=== PATIENT | male | born 1955 ===

== ENCOUNTER 2024-08-11 14:48 | Inpatient (IN) | payer OTHER ==
[~2024-08-11] VITALS: Ht 61 cm; Wt 71.2 kg
[~2024-08-11 14:48] MED LIST: BACLOFEN10 MG PO; NEURONTIN300 MG PO; NEURONTIN600 M1 PO; ZESTRIL20 MG PO
[2024-08-19] MEDS ORDERED: MEDROLPACK PO (07:11)
[2024-08-19] MEDS ORDERED: COLACE100 MG PO (07:11)
[2024-08-19] MEDS ORDERED: AMOX-CLAV 875-1 EACH PO (07:11)
[2024-08-19] MEDS ORDERED: PERCOCET 5-3251 EACH PO (07:11)
[2024-08-19] MEDS ORDERED: GABAPENTIN100 M2 PO (07:13)
[2024-08-19] MEDS ORDERED: ZOFRAN8 MG PO (07:13)
[2024-08-19] MEDS ORDERED: NEURONTIN800 MG PO (07:14)
[2024-08-19] MEDS ORDERED: 0.9 % SODIUM CHLORIDE 1,000 ML IV SCH (07:15)
[2024-08-19] MEDS ORDERED: ENALAPRILAT DIHYDRATE 1.25 MG/ML VIAL IV PRN (07:15)
[2024-08-19] MEDS ORDERED: PROMETHAZINE HCL 50 MG/ML AMPUL IM PRN (07:15)
[2024-08-19] MEDS ORDERED: METHYLPREDNISOLONE SOD SUCC 125 MG VIAL IV SCH (09:00)
[2024-08-19] MEDS ORDERED: TAMSULOSIN HCL 0.4 MG CAP PO SCH (09:00)
[2024-08-19] MEDS ORDERED: CEFAZOLIN SODIUM 1,000 MG in 0.9 % SODIUM CHLORIDE 50 ML IV SCH (09:00)
[2024-08-19] MEDS ORDERED: FAMOtidine 20 MG TABLET PO SCH (09:00)
[2024-08-19] MEDS ORDERED: MORPHINE SULFATE 4 MG/ML CARTRIDGE IV SCH (09:00)
[2024-08-19] MEDS ORDERED: VANCOMYCIN HCL 1,000 MG VIAL IV SCH (09:00)
[2024-08-19] MEDS ORDERED: DOCUSATE SODIUM 100MG CAP PO SCH (09:00)
[2024-08-19] MEDS ORDERED: METHYLPREDNISOLONE SOD SUCC 125 MG VIAL IV ONE (10:00)
[2024-08-19] MEDS ORDERED: IOVERSOL 320 MG/ML - 50 ML VIAL IV ONE (10:00)
[2024-08-19] MEDS ORDERED: METHYLPREDNISOLONE ACETATE 80 MG/ML VIAL IM ONE (10:00)
[2024-08-19] MEDS ORDERED: METHYLPREDNISOLONE SOD SUCC 125 MG VIAL IJ ONE (10:00)
[2024-08-19] MEDS ORDERED: VANCOMYCIN HCL 1,000 MG VIAL IV ONE (10:00)
[2024-08-19] MEDS ORDERED: ISOPROPYL ALCOHOL 30 ML OUNCE TOP ONE (10:00)
[2024-08-19] MEDS ORDERED: VANCOMYCIN HCL 1,000 MG VIAL IR ONE ×2 (10:00→11:30)
[2024-08-19] MEDS ORDERED: CEFAZOLIN SODIUM 1,000 MG VIAL IV ONE (10:00)
[2024-08-19] MEDS ORDERED: HEMOSTATIC MATRIX WITH THROMBIN KIT TOP ONE (11:45)
[2024-08-19] MEDS ORDERED: MORPHINE SULFATE 4 MG/ML VIAL IV ONE ×2 (12:45→13:15)
[2024-08-19] MEDS ORDERED: BACITRACIN 28.35 GM OINT.TUBE TOP ONE (13:00)
[2024-08-19] MEDS ORDERED: MEPERIDINE HCL 25 MG/ML AMPUL IV ONE (14:00)
[2024-08-19] MEDS ORDERED: ENALAPRILAT DIHYDRATE 1.25 MG/ML VIAL IV ONE (14:10)
[2024-08-19 18:50] VITALS: BP 136/85; O2SAT 96
[2024-08-19] MEDS ORDERED: ACETAMINOPHEN 500 MG GEL..CAP PO SCH (20:00)
[2024-08-19] MEDS ORDERED: GABAPENTIN 800 MG TABLET PO SCH (21:00)
[2024-08-19 23:59] VITALS: BP 128/86; O2SAT 95
[2024-08-20] MEDS ORDERED: SODIUM CHLORIDE 0.45 % 1,000 ML IV SCH
[2024-08-20 04:44] VITALS: O2SAT 95
[2024-08-20] MEDS ORDERED: OxyCODONE HCL 5 MG TABLET (ROXICODONE) PO PRN (06:01)
[2024-08-20 07:43] LABS: HEMATOCRIT 45.5 % (39.0-48.0); HEMOGLOBIN 15.6 g/dL (13-16.00); MEAN CELL VOLUME 97.5 fL (80.0-100.00); MEAN CORPUSCULAR HEMOGLOBIN 33.5 pg (27.00-32.0); MEAN CORPUSCULAR HGB CONC 34.4 g/dl (32.0-36.0); PLATELET COUNT 218 K/uL (150-450); RED BLOOD COUNT 4.67 M/uL (4.00-6.00); RED CELL DISTRIBUTION WIDTH 13.8 % (11.5-14.5)
[2024-08-20 08:00] VITALS: BP 160/78; O2SAT 95
[2024-08-20 08:48] LABS: CALCIUM 8.7 mg/dL (8.5-10.1); CREATININE SERUM 1.06 mg/dL (0.70-1.30); GFR 69.68; POTASSIUM 4.3 mEq/L (3.5-5.1)
[2024-08-20] MEDS ORDERED: LISINOPRIL 20 MG TABLET PO SCH (09:00)
[2024-08-20 09:28] VITALS: O2SAT 93
[2024-08-20 16:00] VITALS: BP 136/73; O2SAT 95
[2024-08-20 20:24] VITALS: O2SAT 90
[2024-08-21] VITALS (8 sets, daily range): BP systolic 115–151; BP diastolic 67–91; O2SAT 90–98
== END 2024-08-21 18:56 | DRG 428 ==
LOC: ADM 08-13 10:00 → EDSTATUS 08-13 10:00 → SURH 08-19 05:00 → O/R 08-19 05:00 → SURH 08-19 07:00
PROVIDERS: ADMIT Orthopaedic Surgery Orthopaedic Surgery of the Spine; ATTEND Orthopaedic Surgery Orthopaedic Surgery of the Spine
PROC: 0SG10K1 Fusion of 2 or more Lumbar Vertebral Joints with Nonautologous Tissue Substitute, Posterior Approach, Posterior Column, Open Approach (ICD-10-PCS; 2024-08-19)
PROC: 0SG30A0 Fusion of Lumbosacral Joint with Interbody Fusion Device, Anterior Approach, Anterior Column, Open Approach (ICD-10-PCS; 2024-08-19)
PROC: 0ST20ZZ Resection of Lumbar Vertebral Disc, Open Approach (ICD-10-PCS; 2024-08-19)
PROC: 0ST40ZZ Resection of Lumbosacral Disc, Open Approach (ICD-10-PCS; 2024-08-19)
PROC: 0SG3071 Fusion of Lumbosacral Joint with Autologous Tissue Substitute, Posterior Approach, Posterior Column, Open Approach (ICD-10-PCS; 2024-08-19)
PROC: 0QB30ZZ Excision of Left Pelvic Bone, Open Approach (ICD-10-PCS; 2024-08-19)
PROC: 07DR0ZZ Extraction of Iliac Bone Marrow, Open Approach (ICD-10-PCS; 2024-08-19)
PROC: XRGC0R7 Fusion of 2 or more Lumbar Vertebral Joints using Custom-Made Anatomically Designed Interbody Fusion Device, Open Approach, New Technology Group 7 (ICD-10-PCS; principal; 2024-08-19 07:00)
DX: M48.062 Spinal stenosis, lumbar region with neurogenic claudication (principal); M43.07 Spondylolysis, lumbosacral region; M51.360 Other intervertebral disc degeneration, lumbar region with discogenic back pain only